=== PATIENT | female | born 1980 ===

== ENCOUNTER 2018-09-14 22:14 | Emergency (ER) | payer SELFPAY ==
[2018-09-14 22:28] VITALS: BP 134/85; PULSE 75; TEMP 98.4; O2SAT 100
--- NOTE | 2018-09-14 22:47 | C.PDOC ---
History Of Present Illness 38 year old female presents to the EDc/o mid suprapubic abdominal pain and dysuria for the past 1 day. Patient denies fever, chills, nausea, vomit, diarrhea, vaginal bleeding, vaginal discharge, rash. Time Seen by Provider: 09/14/18 22:39 Chief Complaint (Nursing): Abdominal Pain History Per: Patient History/Exam Limitations: no limitations Onset/Duration Of Symptoms: Days (1) Current Symptoms Are (Timing): Still Present Location Of Pain/Discomfort: Suprapubic Quality Of Discomfort: "Pain" Associated Symptoms: Urinary Symptoms. denies: Nausea, Vomiting, Diarrhea Recent travel outside of the [place]: No Additional History Per: Patient Abnormal Vaginal Bleeding: No Past Medical History Reviewed: Historical Data, Nursing Documentation, Vital Signs Vital Signs: Last Vital Signs Temp 98.4 F 09/14/18 22:19 Pulse 75 09/14/18 22:19 Resp 17 09/14/18 22:19 BP 134/85 09/14/18 22:19 Pulse Ox 100 09/14/18 22:19 - Medical History PMH: No Chronic Diseases Surgical History: No Surg Hx Family History: States: Unknown Family Hx - Social History Hx Alcohol Use: No Hx Substance Use: No Review Of Systems Constitutional: Negative for: Fever, Chills Respiratory: Negative for: Cough Gastrointestinal: Positive for: Abdominal Pain. Negative for: Nausea, Vomiting Genitourinary: Positive for: Dysuria. Negative for: Hematuria, Vaginal Discharge, Vaginal Bleeding Skin: Negative for: Rash Neurological: Negative for: Weakness, Numbness Physical Exam - Physical Exam Appears: Non-toxic, No Acute Distress Skin: Normal Color, Warm, Dry Head: Atraumatic, Normacephalic Eye(s): bilateral: Normal Inspection Neck: Normal ROM, Supple Chest: Symmetrical Cardiovascular: Rhythm Regular Respiratory: Normal Breath Sounds, No Rales, No Rhonchi, No Wheezing Gastrointestinal/Abdominal: Soft, Tenderness (suprapubic), No Guarding, No Rebound Back: No CVA Tenderness Pelvic: No Vaginal Bleeding, Vaginal Discharge (think yellowish, blood tinged ), Cervical Motion Tenderness, No Adnexal Tenderness, No Mass Extremity: Normal ROM, No Tenderness, No Swelling Neurological/Psych: Oriented x3, Normal Speech, Normal Cognition Gait: Steady ED Course And Treatment O2 Sat by Pulse Oximetry: 100 (ON RA) Pulse Ox Interpretation: Normal Progress Note: Plan: - Chlamydia. - Motrin 600 mg PO. - Rocephin 250 mg IM. - Zithromax 1,000 mg PO. - UA. On reassessment, patient is resting comfortably, and is in no acute distress. Patient was instructed to follow up with physician/clinic in 1-2 days for further evaluation. 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 - Scribe Statement The provider has reviewed the documentation as recorded by the Scribe Jacob Carrera All medical record entries made by the Scribe were at my direction and personally dictated by me. I have reviewed the chart and agree that the record accurately reflects my personal performance of the history, physical exam, medical decision making, and the department course for this patient. I have also personally directed, reviewed, and agree with the discharge instructions and disposition.
[2018-09-14 23:11] LABS: SQUAMOUS EPITHIAL 4 /hpf (0-5); URINE BACTERIA RARE (<OCC); URINE BILIRUBIN NEGATIVE (NEGATIVE); URINE BLOOD NEGATIVE (NEGATIVE); URINE CLARITY Clear (Clear); URINE COLOR Yellow (YELLOW); URINE GLUCOSE (UA) NORMAL (Normal); URINE LEUKOCYTE ESTERASE NEG Leu/uL (Negative); URINE PROTEIN NEGATIVE (NEGATIVE); URINE UROBILINOGEN NORMAL mg/dL (0.2-1.0)
[2018-09-15] MEDS ORDERED: cefTRIAXone (Rocephin) 250 mg Inj IM STA (00:01)
[2018-09-15 00:32] VITALS: RESP 20
== END 2018-09-15 00:31 | disposition home or self-care (01) ==
LOC: C.ER 22:14
DX: N72 Inflammatory disease of cervix uteri (principal)
CPT/HCPCS: 81001; 87491; 87591; 96372; 99284; J0696